=== PATIENT | female | born 1950 | race Hispanic/Latino ===

== ENCOUNTER 2020-06-20 08:39 | Outpatient (CLI) | payer MEDICARE, MEDICAID ==
--- NOTE | 2020-06-20 09:49 | RAD ---
LUMBAR SPINE 2 VIEWS: HISTORY: Fracture L2. COMPARISON: There are no comparison studies. FINDINGS: There is superior end plate compression at the L2 vertebra with loss of central height in the 25% ran ge. Slight buckling of the posterior cortex is suggestive of an acute compression. Loss of disk spa ce at the L1-2 level. Degenerative osteophytes are noted at this level. The other lumbar vertebrae maintain normal height. Pedicle screws are seen on the right at L4-5 and there is interbody implant at L4-5. There are 2 str ut-type devices at the L5-S1 disk space. Posterior alignment is preserved throughout. IMPRESSION: 1. Superior end plate compression of L2 as described. 2. Degenerative and postoperative changes of lumbar spine as described. POS: AGW
== END 2020-06-20 08:40 | disposition home or self-care (01) ==
LOC: BICRAD 08:39
PROVIDERS: ATTEND Neurological Surgery
DX: S32.021A Stable burst fracture of second lumbar vertebra, initial encounter for closed fracture (principal); M47.816 Spondylosis without myelopathy or radiculopathy, lumbar region; Z98.890 Other specified postprocedural states
CPT/HCPCS: 72100

== ENCOUNTER 2022-08-02 01:58 | Emergency (ER) | payer MEDICARE, MEDICAID ==
[2022-08-02] MEDS ORDERED: Benzonatate 100 MG CAP ONE (03:05)
[2022-08-02 03:24] LABS: SARS-CoV-2 NAA Rapid Test Not Detected (NotDetected)
== END 2022-08-02 03:01 | disposition home or self-care (01) ==
LOC: ERS 01:58
DX: R05.9 Cough, unspecified (principal); E11.9 Type 2 diabetes mellitus without complications; I10 Essential (primary) hypertension; Z20.822 Contact with and (suspected) exposure to COVID-19
CPT/HCPCS: 0240U; 71045; 93005

== ENCOUNTER 2023-03-02 07:24 | Outpatient (CLI) | payer MEDICARE | END 2023-03-02 07:25 | disposition home or self-care (01) | LOC: RAD 07:24 | PROVIDERS: ATTEND Family Medicine | DX: E78.5 Hyperlipidemia, unspecified (principal); M47.816 Spondylosis without myelopathy or radiculopathy, lumbar region; M47.812 Spondylosis without myelopathy or radiculopathy, cervical region; Z98.1 Arthrodesis status | CPT/HCPCS: 72050; 72100 ==

== ENCOUNTER 2023-04-22 08:57 | Outpatient (CLI) | payer MEDICARE | END 2023-04-22 08:58 | disposition home or self-care (01) | LOC: BICMAMMO 08:57 | PROVIDERS: ATTEND Family Medicine | DX: Z12.31 Encounter for screening mammogram for malignant neoplasm of breast (principal); N63.41 Unspecified lump in right breast, subareolar; Z85.3 Personal history of malignant neoplasm of breast; Z98.890 Other specified postprocedural states | CPT/HCPCS: 77063; 77067 ==

== ENCOUNTER 2023-05-03 09:16 | Outpatient (CLI) | payer MEDICARE | END 2023-05-03 09:17 | disposition home or self-care (01) | LOC: BICULT 09:16 | PROVIDERS: ATTEND Family Medicine | DX: N63.41 Unspecified lump in right breast, subareolar (principal); N60.01 Solitary cyst of right breast ==

== ENCOUNTER 2023-08-11 15:39 | Emergency (ER) | payer MEDICARE ==
[2023-08-11] MEDS ORDERED: traMADol HCl 50 MG TAB ONE (16:31)
== END 2023-08-11 17:38 | disposition home or self-care (01) ==
LOC: ERS 15:39
DX: M25.561 Pain in right knee (principal); M25.571 Pain in right ankle and joints of right foot; M25.522 Pain in left elbow; T14.8XXA Other injury of unspecified body region, initial encounter; E11.9 Type 2 diabetes mellitus without complications; I10 Essential (primary) hypertension; X50.1XXA Overexertion from prolonged static or awkward postures, initial encounter

== ENCOUNTER 2024-05-16 11:36 | Outpatient (CLI) | payer MEDICARE, MEDICAID | END 2024-05-16 11:37 | disposition home or self-care (01) | LOC: MRI 11:36 | PROVIDERS: ATTEND Family Medicine | DX: M51.9 Unspecified thoracic, thoracolumbar and lumbosacral intervertebral disc disorder (principal); M47.816 Spondylosis without myelopathy or radiculopathy, lumbar region; Z98.890 Other specified postprocedural states | CPT/HCPCS: 72148 ==

== ENCOUNTER 2025-06-18 14:47 | Outpatient (CLI) | payer MEDICAID, MEDICARE | END 2025-06-18 14:48 | disposition home or self-care (01) | LOC: BICMAMMO 14:47 | PROVIDERS: ATTEND Family Medicine | DX: Z12.31 Encounter for screening mammogram for malignant neoplasm of breast (principal); Z85.3 Personal history of malignant neoplasm of breast; Z98.890 Other specified postprocedural states | CPT/HCPCS: 77063; 77067 ==